=== PATIENT | male | born 1975 | race Caucasian/White ===

== ENCOUNTER 2023-12-07 15:07 | Emergency (ER) | payer SELFPAY ==
[2023-12-07 15:43] VITALS: PULSE 100; RESP 20; TEMP 98.5; O2SAT 100
[2023-12-07] MEDS ORDERED: TORAdol 30 mg Injection ONE (15:47)
[2023-12-07] MEDS ORDERED: DECADRON 10MG INJ. ONE (15:47)
[2023-12-07] MEDS: TORAdol 30 mg Injection IM ONE (15:48)
[2023-12-07] MEDS: DECADRON 10MG INJ. IM ONE (15:49)
--- NOTE | 2023-12-07 16:15 | ERPHSYRPT ---
- History of Present Illness Time Seen by Provider: 12/07/23 15:40 Source: patient Exam Limitations: no limitations Patient Subjective Stated Complaint: Back pain Triage Nursing Assessment: Patient brought into ED per EMS and transferred self to bed with assist of 2. Patient A+O X3. Patient's skin pink, warm and dry. Patient currently an inmate at [facility], but is being housed in [facility]. Patient has Chronic back pain and has had multiple back surgeries since 2007. Patient states he fell in shower at [facility] and landed on his back. Patient was seen at [facility] on evening and was transferred to [facility]. Physician History: 48-year-old male with a history of back pain back surgery presents to our ED for acute on chronic back pain. Patient is a [facility] inmate. Patient states he fell in the shower on . Patient went to [facility]. Patient was worked up extensively. Imaging studies of the lumbar spine. Patient was reportedly transferred to and released. No interval falls however patient is here with back pain. Today is back pain was not triggered by injury or trauma. Patient otherwise feels well. Low back pain is localized. No radiation. Pain worse with movement and palpation. Pain improved with rest. Patient voices no other complaints or concerns at this time. Portions of this note were created with voice recognition technology. There may be grammatical, spelling, punctuation or sound alike errors Timing/Duration: today Method of Injury: other (No injury) Quality: aching Back Pain Location: lumbar spine Severity of Pain-Max: moderate Severity of Pain-Current: mild Modifying Factors: Improves With: nothing Associated Symptoms: denies symptoms Previous symptoms: same symptoms as today Allergies/Adverse Reactions: tramadol Adverse Reaction (Verified 12/07/23 15:19) Itching Home Medications: No Reportable Medications [No Reported Medications] 12/07/23 [History] Travel Risk - International Travel Have you traveled outside of the country in past 3 weeks: No - Emerging Infectious Disease Are you exhibiting symptoms associated with any current EIDs: No - Review of Systems Constitutional: No Symptoms, No Fever, No Chills Eyes: No Symptoms Ears, Nose, & Throat: No Symptoms Respiratory: No Symptoms, No Cough, No Dyspnea Cardiac: No Symptoms, No Chest Pain, No Edema, No Syncope Abdominal/Gastrointestinal: No Symptoms, No Abdominal Pain, No Nausea, No Vom iting, No Diarrhea Genitourinary Symptoms: No Symptoms, No Dysuria Musculoskeletal: No Symptoms, No Back Pain, No Neck Pain Skin: No Symptoms, No Rash Neurological: No Symptoms, No Dizziness, No Focal Weakness, No Sensory Changes Psychological: No Symptoms Endocrine: No Symptoms Hematologic/Lymphatic: No Symptoms Immunological/Allergic: No Symptoms All Other Systems: Reviewed and Negative - Past Medical History Pertinent Past Medical History: No Neurological History: No Pertinent History ENT History: No Pertinent History Cardiac History: No Pertinent History Respiratory History: No Pertinent History Endocrine Medical History: No Pertinent History Musculoskeletal History: No Pertinent History GI Medical History: Other History: No Pertinent History Psycho-Social History: No Pertinent History Male Reproductive Disorders: No Pertinent History Other Medical History: Dumping syndrome - Past Surgical History Past Surgical History: Yes Neuro Surgical History: No Pertinent History Cardiac: No Pertinent History Respiratory: No Pertinent History Gastrointestinal: Other Genitourinary: No Pertinent History Musculoskeletal: Orthopedic Surgery Male Surgical History: No Pertinent History Other Surgical History: 15 major back surgeries since 2007. 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 - Social History Smoking Status: Never smoker Exposure to second hand smoke: No Drug Use: none - Nursing Vital Signs Nursing Vital Signs: Initial Vital Signs Temperature 98.5 F 12/07/23 15:22 Pulse Rate 100 H 12/07/23 15:22 Respiratory Rate 20 12/07/23 15:22 Blood Pressure 113/77 12/07/23 15:22 O2 Sat by Pulse Oximetry 100 12/07/23 15:22 Pain Scale Pain Intensity 10 - Physical Exam General Appearance: no apparent distress, alert Eye Exam: PERRL/EOMI, eyes nml inspection Ears, Nose, Throat Exam: normal ENT inspection, TMs normal, pharynx normal Neck Exam: normal inspection, non-tender, supple, full range of motion, No meningismus, No midline tenderness Respiratory Exam: normal breath sounds, lungs clear, airway intact, No respiratory distress Cardiovascular Exam: regular rate/rhythm, normal heart sounds, normal peripheral pulses Gastrointestinal Exam: soft, No tenderness, No mass Extremity Exam: normal inspection, normal range of motion, No calf tenderness, No pedal edema Neurologic Exam: alert, oriented x 3, cooperative, 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, normal mood/affect, nml station & gait, sensation nml, No motor deficits Skin Exam: normal color, warm, dry, No rash Lymphatic Exam: No adenopathy SpO2 Interpretation: normal SpO2: 100 O2 Delivery: Room Air - Course Nursing assessment & vital signs reviewed: Yes Ordered Tests: Medication Summary Discontinued Medications Generic Name Dose Route Start Last Admin Trade Name Boby PRN Reason Stop Dose Admin Dexamethasone Sodium Phosphate 10 mg 12/07/23 15:42 12/07/23 15:49 Dexamethasone Sod Phosphate 10 Mg/Ml IM 12/07/23 15:43 10 mg STAT ONE Administration Dexamethasone Sodium Phosphate Confirm 12/07/23 15:47 Dexamethasone Sod Phosphate 10 Mg/Ml Administered 12/07/23 15:48 Dose 10 mg .ROUTE .STK-MED ONE Ketorolac Tromethamine 60 mg 12/07/23 15:41 12/07/23 15:48 Ketorolac Tromethamine 30 Mg/Ml Inj IM 12/07/23 15:42 60 mg STAT ONE Administration Ketorolac Tromethamine Confirm 12/07/23 15:47 Ketorolac Tromethamine 30 Mg/Ml Inj Administered 12/07/23 15:48 Dose 60 mg .ROUTE .STK-MED ONE - Progress Progress: improved Progress Note: 48-year-old male presents to our ED with acute on chronic back pain. Physical exam at his baseline. Patient received Toradol and Decadron for pain control. Pain improved but not completely resolved. The Decadron requires more time to take full effect. Patient is aware and is willing to be discharged. We discussed gabapentin for additional pain relief. Patient reports she has taken gabapentin in the past. This may be a consideration if patient's back pain does not improve with this round of management. Portions of this note were created with voice recognition technology. There may be grammatical, spelling, punctuation or sound alike errors Complexity problem addressed is moderate acute complicated No critical care time Complex of data reviewed and analyzed is low. No specialized testing ordered. Diagnosis made based on history and physical examination. Patient had a complete workup on at [facility]. No interval trauma. Risk of complication and a risk of morbidity/mortality patient management is low Vital stable. Time spent to discharge patient approximately 20 minutes. Plan of care established via shared decision making. No social determinants of health post feed follow-up with Portions of this note were created with voice recognition technology. There may be grammatical, spelling, punctuation or sound alike errors 12/07/23 16:59 Counseled pt/family regarding: diagnosis, need for follow-up - Departure Departure Disposition: Home Clinical Impression: Acute exacerbation of chronic low back pain Condition: Stable Critical Care Time: No Additional Instructions: Discharge/Care Plan KHADAR BHATTI was seen on 12/07/23 in the Emergency Room. The patient was counseled regarding Diagnosis,Lab results, Imaging studies, need for follow up and when to return to the Emergency Room. Prescriptions given: Discharge Note I have spoken with the patient and/or caregivers. I have explained the patient's condition, diagnosis and treatment plan based on the information available to me at this time. I have answered the patient's and/or caregiver's questions and addressed any concerns. The patient and/or caregivers have as good understanding of the patient's diagnosis, condition and treatment plan as can be expected at this point. The vital signs have been stable. The patient's condition is stable and appropriate for discharge from the emergency department. The patient will pursue further outpatient evaluation with the primary care physician or other designated or consulting physician as outlined in the discharge instructions. The patient and/or caregivers are agreeable to this plan of care and follow-up instructions have been explained in detail. The patient and/or caregivers have received these instruction. The patient/and or caregivers are aware that any significant change in condition or worsening of symptoms should prompt an immediate return to this or the closest emergency department or call 911.
[2023-12-07 17:03] VITALS: BP 113/63
[2023-12-07] MEDS ORDERED: NORCO 5/325 MG ONE (17:49)
[2023-12-07] MEDS: NORCO 5/325 MG PO ONE (17:50)
== END 2023-12-07 18:05 | disposition home or self-care (01) ==
LOC: ED 15:07
DX: M54.9 Dorsalgia, unspecified (principal); W18.2XXD Fall in (into) shower or empty bathtub, subsequent encounter
CPT/HCPCS: 96372; 99283; J1100; J1885; A9270-GY